=== PATIENT | male | born 1940 | race Caucasian/White ===

== ENCOUNTER 2020-02-28 11:01 | Outpatient (RCR) | payer MEDICARE, BC ==
--- NOTE | 2020-02-28 11:48 | NUR ---
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 Pt reported significant past medical history includes COPD. Pt reported that his voice has been scratchy and hoarse since approximately May or June of 2019. The onset was gradual, with brief periods of no voicing at all. He also remarked on a new difficulty with clearing phlegm that formed in his throat and a pinched, painful tension in his throat. He denied any significant illness or event with the beginning of his voice problem. In August,, pt had an appointment with an ENT and was diagnosed with reverse vocal cords. Pt stated that his physician gave him some exercises but they seemed to increase the amount of tension he felt in his throat. He stated that his doctor may have mentioned evidence of reflux damage around his vocal cords, but he was not sure. When asked, pt confirmed that he experiences a globus sensation, frequent throat clearing, random dry cough, increased mucous production, and decreased volume of his voice. Pt also reported that his voice often cuts off when he is trying to speak. Mr. Man reported that he does not smoke nor does he drink caffeinated beverages. Current Medications: according to the intake form completed by Mr. Man, current medication list includes pantoprazole 40 mg once per day (in the morning). 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 Pt Goal: to sound normal and increase the loudness of his voice. Laryngeal Examination: Lance appears to have larynx at midline with unrestricted movement and normal elevation. No muscle tension was noted in the laryngeal area, glossal area, or the sternocleidomastoid area. Gentle palpation of temples, jaw, shoulders, neck, strap muscles, and larynx resulted in minimal discomfort. Mr. Man rated discomfort as a 3 out of 10. Hearing: Appeared to be WFL. Objective Measurements: AverageRangeNormal Sustained Vowel77 dB71-81 dB80 dB High/Low FrequencyHigh: 445 Hz Lo: 88 Ks27-769 Vj033-527 Hz Max Sustained Phonation6.57 seconds5-7 [id number] seconds Perceptual Measure: Mr. Man feels his vocal quality is consistently hoarse with low volume and causes increased attention to and conversation about his voice problem. He must strain to produce a voice loud enough for others to understand and is bothered by his voice problem. Completion of the Voice Handicap Index (VHI) showed a total score of 47, which is reflective of a perception of a moderate voice disorder. Oral Motor Exam: An oral motor speech exam revealed structures and function of speech mechanism to be WFL. Education: Mr. Man was educated regarding basic anatomy and physiology of the vocal cords. Vocal hygiene and reflux precautions were covered in extensive detail. The importance of taking reflux medications and controlling reflux with behavioral modifications was stressed extensively. Treatment/Stimulability: Various techniques to alter the way Mr. Man used his voice were attempted to assess for improved vocal quality and stimulability to therapeutic stimuli. Pt demonstrated good stimulability and was able to produce vowel sounds and then simple CV words with clear vocal quality. Treatment techniques were introduced and home program assigned. Interruptions in sustained phonation consistent with PVCM were noted. Impressions: Mr. 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 This disorder decreases his ability to participate in activities of daily living and activities he enjoys. Mr. Man would benefit from voice therapy to improve functional use of voice for improved vocal quality and behavioral management of PCVM. Prognosis: Favorable for improved vocal quality secondary to a high level of motivation to improve and good stimulability to produce clear vocal quality in both isolated vowel sounds and simple CV words. Recommendations: 1. Voice therapy 1/week X 4 weeks 2. Vocal hygiene program 3. GERD precautions Supervisor Finishing Goal(s): Patient will improve vocal quality to perform functional demands of conversational speech. Short Term Goals: 1.Pt will follow vocal hygiene recommendations with independence for improvement in vocal fold health for vocalization. 2.Pt will follow GERD precautions with independence for improvement of vocal cord health. 3.Pt will implement gentle use of voice with easy onset exercises with independence. 4.Pt will complete exercises to increase loudness of speech without compromising functional and appropriate use of vocal cords with independence. 5.Pt will complete home exercise program of stretches/laryngeal massage and practice of therapeutic stimuli with independence. 6.Pt will implement breathing techniques to effectively manage PCVM with independence. Thank you for including me in the care of your patient. Please do not hesitate to contact me at [phone] should you have any questions regarding this evaluation or the plan of care. Kellee Palacios M.A. [facility] Date of Session: 02/28/20 Analysis of Voice and Resonance X 61 minutes NOMS Voice Level 4
--- NOTE | 2020-03-06 11:49 | NUR ---
ST Note: pt missed his appointment today. 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 pt reported he was unable to find the building. pt reported he plans to attend sessions scheduled next week, 03/13/20.
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
== END 2020-03-18 ==
LOC: ST 11:01
PROVIDERS: ATTEND Physical Therapist
DX: R09.89 Other specified symptoms and signs involving the circulatory and respiratory systems (principal); R49.0 Dysphonia; J44.9 Chronic obstructive pulmonary disease, unspecified

== ENCOUNTER 2020-03-20 12:02 | Outpatient (RCR) | payer MEDICARE, BC | END 2020-04-17 | LOC: ST 12:02 | PROVIDERS: ATTEND Physical Therapist | DX: R09.89 Other specified symptoms and signs involving the circulatory and respiratory systems (principal) ==